=== PATIENT | male | born 1995 | race Two or more races ===

== ENCOUNTER → 2022-08-31 | Outpatient (CLI) | payer BC | LOC: M RAD 08:44 → EDUNIT# 09:30 | PROVIDERS: ATTEND Nurse Practitioner Family | DX: I10 Essential (primary) hypertension (principal) ==

== ENCOUNTER → 2022-11-17 | Outpatient (CLI) | payer BC ==
[2022-11-17 09:51] LABS: APPEARANCE, URINE MANUAL CLEAR (CLEAR); COLOR, URINE MANUAL YELLOW (YELLOW)
[2022-11-17 09:52] LABS: BILIRUBIN, URINE MANUAL NEGATIVE (NEGATIVE); BLOOD URINE MANUAL NEGATIVE (NEGATIVE); GLUCOSE, URINE (UA) MANUAL NEGATIVE (NEGATIVE); KETONE, URINE MANUAL NEGATIVE (NEGATIVE); LEUKOCYTE ESTERASE, URINE MAN NEGATIVE (NEGATIVE); NITRITE, URINE MANUAL NEGATIVE (NEGATIVE); PROTEIN, URINE MANUAL NEGATIVE (NEGATIVE); UROBILINOGEN, URINE MANUAL NORMAL (NORMAL)
[2022-11-17 10:14] LABS: ALBUMIN 4.5 G/DL (3.2-5.2); BLOOD UREA NITROGEN 18 MG/DL (9-23); CALCIUM LEVEL 9.3 MG/DL (8.5-10.1); CARBON DIOXIDE LEVEL 24 MMOL/L (20-31); CHLORIDE LEVEL 104 MMOL/L (98-107); CREATININE FOR GFR 1.26 MG/DL (0.70-1.30); GLOMERULAR FILTRATION RATE > 60.0 (>60); GLUCOSE, FASTING 166 MG/DL (60-100); PHOSPHORUS LEVEL 3.5 MG/DL (2.5-4.9); POTASSIUM SERUM 4.2 MMOL/L (3.5-5.1); SODIUM LEVEL 138 MMOL/L (136-145)
[2022-11-17 10:17] LABS: THYROID STIMULATING HORMONE 0.836 uIU/ML (0.55-4.78)
== END ==
LOC: M LAB 09:15
PROVIDERS: ATTEND Internal Medicine Cardiovascular Disease
DX: I10 Essential (primary) hypertension (principal)

== ENCOUNTER → 2023-02-28 | Outpatient (CLI) | payer BC ==
[2023-02-28 09:25] LABS: ALBUMIN 3.7 G/DL (3.2-5.2); BLOOD UREA NITROGEN 15 MG/DL (9-23); CALCIUM LEVEL 8.6 MG/DL (8.5-10.1); CARBON DIOXIDE LEVEL 27 MMOL/L (20-31); CHLORIDE LEVEL 108 MMOL/L (98-107); CREATININE FOR GFR 0.94 MG/DL (0.70-1.30); GLOMERULAR FILTRATION RATE > 60.0 (>60); GLUCOSE, FASTING 88 MG/DL (60-100); PHOSPHORUS LEVEL 4.1 MG/DL (2.5-4.9); POTASSIUM SERUM 4.2 MMOL/L (3.5-5.1); SODIUM LEVEL 141 MMOL/L (136-145)
== END ==
LOC: M LAB 08:32
PROVIDERS: ATTEND Internal Medicine Cardiovascular Disease
DX: R73.9 Hyperglycemia, unspecified (principal); I10 Essential (primary) hypertension

== ENCOUNTER → 2023-02-28 | Outpatient (REF) | payer BC | LOC: M LAB REF 16:01 | PROVIDERS: ATTEND Nurse Practitioner Family | DX: R53.83 Other fatigue (principal) ==

== ENCOUNTER → 2023-03-07 | Outpatient (REF) | payer BC ==
[2023-03-07 14:56] LABS: BASO % 0.7 % (0.0-1.0); EOS # 0.1 10^3/uL (0.0-0.5); EOS % 1.6 % (0.0-3.0); HEMATOCRIT 45.8 % (42.0-52.0); HEMOGLOBIN 15.1 g/dl (13.5-17.5); LYMPH # 2.3 10^3/uL (1.5-5.0); LYMPH % 40.6 % (24.0-44.0); MEAN CORPUSCULAR HEMOGLOBIN 28.1 pg (27.0-33.0); MEAN CORPUSCULAR VOLUME 85.3 fl (80.0-96.0); MONO # 0.3 10^3/uL (0.0-0.8); MONO % 5.4 % (2.0-8.0); NEUTROPHILS % 51.5 % (36.0-66.0); PLATELET COUNT, AUTOMATED 296 10^3/uL (150-450); RED BLOOD COUNT 5.37 10^6/uL (4.30-6.10); WHITE BLOOD COUNT 5.7 10^3/uL (4.0-10.0)
== END ==
LOC: M LAB REF 13:02
PROVIDERS: ATTEND Nurse Practitioner Family
DX: R53.83 Other fatigue (principal); R61 Generalized hyperhidrosis

== ENCOUNTER → 2023-04-01 | Outpatient (REF) | payer BC ==
[2023-04-01 17:23] LABS: BASO % 0.8 % (0.0-1.0); EOS # 0.1 10^3/uL (0.0-0.5); EOS % 2.4 % (0.0-3.0); HEMATOCRIT 42.4 % (42.0-52.0); HEMOGLOBIN 14.4 g/dl (13.5-17.5); LYMPH # 2.3 10^3/uL (1.5-5.0); LYMPH % 44.1 % (24.0-44.0); MEAN CORPUSCULAR HEMOGLOBIN 28.6 pg (27.0-33.0); MEAN CORPUSCULAR VOLUME 84.3 fl (80.0-96.0); MONO # 0.3 10^3/uL (0.0-0.8); NEUTROPHILS # 2.5 10^3/uL (1.5-8.5); NEUTROPHILS % 46.5 % (36.0-66.0); PLATELET COUNT, AUTOMATED 263 10^3/uL (150-450); RED BLOOD COUNT 5.03 10^6/uL (4.30-6.10); WHITE BLOOD COUNT 5.3 10^3/uL (4.0-10.0)
== END ==
LOC: M LAB REF 16:10
PROVIDERS: ATTEND Nurse Practitioner Family
DX: R53.83 Other fatigue (principal); R61 Generalized hyperhidrosis

== ENCOUNTER → 2023-04-22 | Outpatient (REF) | payer MEDICAID | LOC: M LAB REF 16:18 | PROVIDERS: ATTEND Nurse Practitioner Family | DX: R61 Generalized hyperhidrosis (principal) ==

== ENCOUNTER 2024-02-20 07:55 | Emergency (ER) | payer MEDICAID, OTHER ==
[~2024-02-20] VITALS: Ht 170.2 cm; Wt 101.2 kg
[2024-02-20] MEDS ORDERED: ZOLO50TA PO (08:01)
[2024-02-20] MEDS ORDERED: BUPR1TAB52 PO (08:01)
[2024-02-20] MEDS ORDERED: SPIR-10 PO ×2 (08:05→10:37)
[2024-02-20] MEDS ORDERED: AMLO10TA PO (08:05)
[2024-02-20] MEDS ORDERED: CARV25TA PO ×2 (08:05→10:37)
[2024-02-20 09:20] VITALS: BP 165/108
[2024-02-20 10:09] LABS: BLOOD UREA NITROGEN 11 MG/DL (9-23); CALCIUM LEVEL 8.7 MG/DL (8.5-10.1); CARBON DIOXIDE LEVEL 25 MMOL/L (20-31); CHLORIDE LEVEL 107 MMOL/L (98-107); CREATININE FOR GFR 0.94 MG/DL (0.70-1.30); GLOMERULAR FILTRATION RATE > 60.0 (>60); GLUCOSE, FASTING 82 MG/DL (60-100); SODIUM LEVEL 140 MMOL/L (136-145)
[2024-02-20] MEDS ORDERED: CHLO125TA PO (10:37)
[2024-02-20] MEDS ORDERED: AMLO1TAB25 PO (10:37)
[2024-02-20 10:50] VITALS: BP 179/104; TEMP 98.3; O2SAT 99
== END 2024-02-20 10:52 | disposition home or self-care (01) ==
LOC: M ED 07:55
DX: I10 Essential (primary) hypertension (principal); Z91.199 Patient's noncompliance with other medical treatment and regimen due to unspecified reason; G47.33 Obstructive sleep apnea (adult) (pediatric); Z79.899 Other long term (current) drug therapy

== ENCOUNTER 2024-03-17 08:28 | Inpatient (IN) | payer OTHER ==
[~2024-03-17] VITALS: Ht 170.2 cm; Wt 99.6 kg
[~2024-03-17 08:28] MED LIST: AMLO10TA PO; AMLO1TAB25 PO; BUPR1TAB52 PO; CARV25TA PO; CHLO125TA PO; SPIR-10 PO; ZOLO50TA PO
[2024-03-17 09:47] LABS: HEMATOCRIT 45.4 % (42.0-52.0); HEMOGLOBIN 14.9 g/dl (13.5-17.5); MEAN CORPUSCULAR HEMOGLOBIN 28.2 pg (27.0-33.0); MEAN CORPUSCULAR HGB CONC 32.8 g/dl (32.0-36.5); MEAN CORPUSCULAR VOLUME 85.8 fl (80.0-96.0); PLATELET COUNT, AUTOMATED 276 10^3/uL (150-450); RED BLOOD COUNT 5.29 10^6/uL (4.30-6.10); WHITE BLOOD COUNT 3.7 10^3/uL (4.0-10.0)
[2024-03-17 10:08] LABS: ETHYL ALCOHOL (ETHANOL) 0.005 % (0.000-0.010)
[2024-03-17 10:09] LABS: ALBUMIN 4.2 G/DL (3.2-5.2); ALKALINE PHOSPHATASE 51 U/L (46-116); ALT/SGPT 29 U/L (7.0-40); AST/SGOT 26 U/L (<34); BILIRUBIN,DIRECT 0.3 MG/DL (<0.4); BILIRUBIN,TOTAL 0.9 MG/DL (0.3-1.2); BLOOD UREA NITROGEN 15 MG/DL (9-23); CALCIUM LEVEL 9.5 MG/DL (8.5-10.1); CARBON DIOXIDE LEVEL 29 MMOL/L (20-31); CHLORIDE LEVEL 104 MMOL/L (98-107); CREATININE FOR GFR 0.91 MG/DL (0.70-1.30); GLOMERULAR FILTRATION RATE > 60.0 (>60); GLUCOSE, FASTING 82 MG/DL (60-100); SALICYLATE LEVEL < 3.0 MG/DL (<30); SODIUM LEVEL 140 MMOL/L (136-145); TOTAL PROTEIN 7.4 G/DL (5.7-8.2)
[2024-03-17 10:11] LABS: THYROID STIMULATING HORMONE 1.334 uIU/ML (0.55-4.78)
[2024-03-17 10:17] LABS: AMPHETAMINES LEVEL URINE NEGATIVE (NEGATIVE)
[2024-03-17 10:18] LABS: BARBITURATES URINE NEGATIVE (NEGATIVE); BENZODIAZEPINES URINE NEGATIVE (NEGATIVE); CANNABINOIDS URINE NEGATIVE (NEGATIVE); COCAINE METABOLITE URINE NEGATIVE (NEGATIVE); METHADONE URINE NEGATIVE (NEGATIVE); OPIATES URINE NEGATIVE (NEGATIVE); PHENCYCLIDINE URINE NEGATIVE (NEGATIVE)
[2024-03-17] MEDS ORDERED: ACETAMINOPHEN TAB 650MG DOSE (2X325MG) PO PRN (12:35)
[2024-03-17] MEDS ORDERED: MOM 30ML SUSPENSION UDC PO PRN (12:35)
[2024-03-17] MEDS ORDERED: IBUPROFEN 400MG TAB PO PRN (12:35)
[2024-03-17] MEDS ORDERED: MAALOX 30 ML SUSP *UDC PO PRN (12:35)
[2024-03-17] MEDS: CARVedilol 12.5 MG TAB PO SCH (12:42)
[2024-03-17] MEDS: SPIRONOLACTONE 25 MG TAB PO SCH (12:43)
[2024-03-17] MEDS ORDERED: BUPR-597 PO (13:14)
[2024-03-17] MEDS ORDERED: ZOLO100T PO (13:14)
[2024-03-17] MEDS ORDERED: HOME MED LIST COMPLETE! XX SCH (13:15)
[2024-03-17] MEDS: diphenhydrAMINE 25MG CAP PO PRN (16:44)
[2024-03-17 16:52] VITALS: BP 148/83; TEMP 97.7; O2SAT 100
[2024-03-17 18:24] VITALS: BP 132/62
[2024-03-17] MEDS ORDERED: CARVedilol 12.5 MG TAB PO SCH (21:00)
[2024-03-17 21:37] VITALS: BP 140/84
[2024-03-17] MEDS: SERTRALINE HCL 50 MG TAB PO SCH (21:40)
[2024-03-17] MEDS: traZODone 50 MG TAB PO PRN (21:40)
[2024-03-17] MEDS: buPROPion **XL** TABLET 150MG (WELLBUTRIN XL) PO SCH (21:40)
[2024-03-18 06:20] VITALS: BP 157/65; TEMP 97.2; O2SAT 99
[2024-03-18] MEDS ORDERED: SPIRONOLACTONE 25 MG TAB PO SCH (09:00)
[2024-03-18] MEDS: buPROPion **XL** TABLET 150MG (WELLBUTRIN XL) PO SCH (11:45)
[2024-03-18 18:11] VITALS: BP 122/59; TEMP 97.1
[2024-03-18 20:42] VITALS: BP 151/77
[2024-03-18] MEDS: SERTRALINE HCL 50 MG TAB PO SCH (20:44)
[2024-03-19 06:13] VITALS: BP 138/65; TEMP 97.7; O2SAT 99
[2024-03-19 16:10] VITALS: BP 157/70; TEMP 97.6; O2SAT 100
[2024-03-20 06:37] VITALS: BP 125/58; TEMP 97.6; O2SAT 99
[2024-03-20 08:06] VITALS: BP 137/68
[2024-03-20] MEDS ORDERED: BUPR-597 PO (08:29)
[2024-03-20] MEDS ORDERED: SERT150C PO (08:29)
[2024-03-20] MEDS ORDERED: TRAZ-252 PO (08:29)
== END 2024-03-20 11:58 | disposition home or self-care (01) | DRG 754 ==
LOC: M ED 08:28 → M ED INP 12:34 → M PSY 15:55
PROVIDERS: ADMIT Student in an Organized Health Care Education/Training Program; ATTEND Student in an Organized Health Care Education/Training Program
DX: F32.9 Major depressive disorder, single episode, unspecified (principal); I10 Essential (primary) hypertension; R45.851 Suicidal ideations; F41.9 Anxiety disorder, unspecified; F90.9 Attention-deficit hyperactivity disorder, unspecified type; F43.10 Post-traumatic stress disorder, unspecified; F84.0 Autistic disorder; Z79.899 Other long term (current) drug therapy; Z62.810 Personal history of physical and sexual abuse in childhood; E66.9 Obesity, unspecified; G47.33 Obstructive sleep apnea (adult) (pediatric)

== ENCOUNTER → 2024-04-08 | Outpatient (REF) | payer OTHER ==
[~2024-04-08] MED LIST changes: +BUPR-597 PO; +SERT150C PO; +TRAZ-252 PO; +ZOLO100T PO
[2024-04-08 19:15] LABS: BASO % 0.6 % (0.0-1.0); EOS # 0.1 10^3/uL (0.0-0.5); EOS % 2.7 % (0.0-3.0); HEMATOCRIT 40.8 % (42.0-52.0); HEMOGLOBIN 13.6 g/dl (13.5-17.5); LYMPH # 2.2 10^3/uL (1.5-5.0); LYMPH % 42.3 % (24.0-44.0); MEAN CORPUSCULAR HEMOGLOBIN 28.6 pg (27.0-33.0); MEAN CORPUSCULAR HGB CONC 33.3 g/dl (32.0-36.5); MEAN CORPUSCULAR VOLUME 85.9 fl (80.0-96.0); MONO # 0.4 10^3/uL (0.0-0.8); MONO % 7.5 % (2.0-8.0); NEUTROPHILS # 2.4 10^3/uL (1.5-8.5); NEUTROPHILS % 46.7 % (36.0-66.0); PLATELET COUNT, AUTOMATED 243 10^3/uL (150-450); RED BLOOD COUNT 4.75 10^6/uL (4.30-6.10); WHITE BLOOD COUNT 5.2 10^3/uL (4.0-10.0)
[2024-04-08 19:28] LABS: CHOLESTEROL LEVEL 151 MG/DL (<200); CHOLESTEROL RISK RATIO 2.87 (<5); HDL CHOLESTEROL 52.5 MG/DL (>40); LDL CHOLESTEROL 77.1 MG/DL (<100); NON-HDL-C 98.5 MG/DL; TRIGLYCERIDES LEVEL 107 MG/DL (<150)
[2024-04-08 19:30] LABS: TOTAL 25(OH) VITAMIN D 16.1 NG/ML (20.0-100.0)
[2024-04-08 19:32] LABS: HEMOGLOBIN A1c 4.9 % (4.0-6.0)
== END ==
LOC: M LAB REF 16:25
PROVIDERS: ATTEND Physician Assistant
DX: Z11.9 Encounter for screening for infectious and parasitic diseases, unspecified (principal); E55.9 Vitamin D deficiency, unspecified; D72.819 Decreased white blood cell count, unspecified; I10 Essential (primary) hypertension; E66.9 Obesity, unspecified

== ENCOUNTER → 2024-05-05 | Outpatient (REF) | payer OTHER ==
[2024-05-06 13:26] LABS: CREATININE, URINE 109.8 MG/DL; MALB URINE SIEMENS < 3.0 MG/L; MAU/CREAT RATIO 2.7 MCG/MG (0.0-30.0)
== END ==
LOC: M LAB REF 12:06
PROVIDERS: ATTEND Physician Assistant
DX: I10 Essential (primary) hypertension (principal)

== ENCOUNTER 2024-08-26 08:14 | Emergency (ER) | payer OTHER ==
[~2024-08-26] VITALS: Ht 172.7 cm; Wt 104.7 kg
[2024-08-26] MEDS ORDERED: LISI40TA4 (08:26)
[2024-08-26] MEDS ORDERED: ESCITALOPRAM (08:26)
[2024-08-26 11:55] LABS: HEMATOCRIT 46.9 % (42.0-52.0); HEMOGLOBIN 15.9 g/dl (13.5-17.5); MEAN CORPUSCULAR HEMOGLOBIN 28.8 pg (27.0-33.0); MEAN CORPUSCULAR HGB CONC 33.9 g/dl (32.0-36.5); PLATELET COUNT, AUTOMATED 275 10^3/uL (150-450); RED BLOOD COUNT 5.52 10^6/uL (4.30-6.10); WHITE BLOOD COUNT 4.6 10^3/uL (4.0-10.0)
[2024-08-26] MEDS: KETOROLAC 30 MG/ML 1ML VIAL IM ONE (11:56)
[2024-08-26] MEDS: diphenhydrAMINE 50MG/ML VIAL IV ONE (11:56)
[2024-08-26] MEDS: NS 1,000 ML IV ONE (11:56)
[2024-08-26] MEDS: METOCLOPRAMIDE INJ 10MG/2ML VIAL IV ONE (11:56)
[2024-08-26] MEDS: ACETAMINOPHEN 500 MG TAB PO ONE (11:57)
[2024-08-26 12:04] LABS: ERYTHROCYTE SEDIMENTATION RATE 21 mm/hr (0-15)
[2024-08-26 12:15] LABS: BLOOD UREA NITROGEN 11 MG/DL (9-23); CALCIUM LEVEL 10.1 MG/DL (8.5-10.1); CARBON DIOXIDE LEVEL 29 MMOL/L (20-31); CHLORIDE LEVEL 105 MMOL/L (98-107); GLOMERULAR FILTRATION RATE > 60.0 (>60); GLUCOSE, FASTING 82 MG/DL (60-100); POTASSIUM SERUM 4.7 MMOL/L (3.5-5.1); SODIUM LEVEL 140 MMOL/L (136-145)
[2024-08-26 13:36] VITALS: BP 147/74; TEMP 97.4; O2SAT 99
== END 2024-08-26 13:41 | disposition home or self-care (01) ==
LOC: M ED 08:14
DX: R51.9 Headache, unspecified (principal); I10 Essential (primary) hypertension; G47.30 Sleep apnea, unspecified; F84.0 Autistic disorder; Z79.811 Long term (current) use of aromatase inhibitors; Z79.899 Other long term (current) drug therapy
CPT/HCPCS: 70450; 80048; 85027; 85652; 96361; 96372; 96374; 99284; J1200; J1885; J2765

== ENCOUNTER → 2024-10-06 | Outpatient (REF) ==
[~2024-10-06] MED LIST changes: +ESCITALOPRAM; +LISI40TA4
== END ==
LOC: M LAB 09:20
PROVIDERS: ATTEND Family Medicine
DX: Z02.1 Encounter for pre-employment examination (principal)

== ENCOUNTER 2025-01-28 15:05 | Emergency (ER) | payer OTHER ==
[~2025-01-28] VITALS: Ht 170.2 cm; Wt 107.4 kg
[2025-01-28] MEDS ORDERED: HYDR50TAB (15:17)
[2025-01-28] MEDS ORDERED: CARV12.5 (15:17)
[2025-01-28 15:59] LABS: KETONE, URINE AUTO RFX NEGATIVE (NEGATIVE); LEUKOCYTE ESTERASE UR AUTO RFX NEGATIVE (NEGATIVE); MUCUS, URINE RFX SMALL (NEGATIVE); NITRITE, URINE AUTO RFX NEGATIVE (NEGATIVE); RBC, URINE AUTO RFX 0 /HPF (0-3); SQUAM EPITHELIAL CELL UR AURFX 0 /HPF (0-6); WBC, URINE AUTO RFX 1 /HPF (0-3)
[2025-01-28] MEDS: predniSONE 20 MG TAB PO ONE (17:16)
[2025-01-28] MEDS: LIDOCAINE 5% (LIDODERM) PATCH TD ONE (17:16)
[2025-01-28] MEDS: KETOROLAC 30 MG/ML 1ML VIAL IM ONE (17:16)
[2025-01-28 17:48] VITALS: BP 100/55; TEMP 98.5; O2SAT 99
[2025-01-28 18:07] LABS: HEPATITIS B SURFACE ANTIBODY NEGATIVE (POSITIVE)
[2025-01-28 18:18] LABS: HEPATITIS B SURFACE ANTIGEN NEGATIVE (NEGATIVE)
[2025-01-28 18:31] LABS: HIV 1&2 SCREEN NEGATIVE (NEGATIVE)
[2025-01-28 18:39] LABS: HEPATITIS C VIRUS ABY INDEX 0.04 INDEX (<0.8)
[2025-01-28] MEDS ORDERED: METH-1164 PO (19:31)
[2025-01-28] MEDS ORDERED: NAPR-837 PO (19:31)
[2025-01-28] MEDS ORDERED: MEDR4PAK PO (19:31)
[2025-01-28 20:22] LABS: Trichomonas vaginalis (AMP) NOT DETECTED (NEGATIVE)
[2025-01-28 20:45] LABS: GC DNA AMPLIFICATION NEGATIVE (NEGATIVE)
== END 2025-01-28 19:40 | disposition home or self-care (01) ==
LOC: M ED 15:05
DX: M54.30 Sciatica, unspecified side (principal); Z11.3 Encounter for screening for infections with a predominantly sexual mode of transmission; I10 Essential (primary) hypertension; G47.30 Sleep apnea, unspecified; Z79.83 Long term (current) use of bisphosphonates; Z79.899 Other long term (current) drug therapy; Z79.84 Long term (current) use of oral hypoglycemic drugs; Z79.01 Long term (current) use of anticoagulants; Z79.891 Long term (current) use of opiate analgesic; Z79.52 Long term (current) use of systemic steroids; Z79.1 Long term (current) use of non-steroidal anti-inflammatories (NSAID)
CPT/HCPCS: 81001; 86706; 86780; 86803; 87340; 87389; 87661; 87810; 87850; 96372; 99283; J1885; J7512